=== PATIENT | male | born 2000 | race African-American/Black ===

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

== ENCOUNTER 2020-01-15 22:23 | Emergency (ER) | payer MEDICAID ==
[~2020-01-15] VITALS: Ht 180.3 cm; Wt 68.2 kg
[~2020-01-15 22:23] MED LIST: ALBUTEROL SULF8.5 GM INH; ZITHROMAX TRI-500 MG PO
[2020-01-15 22:31] VITALS: Ht 180.3 cm; Wt 68.2 kg
[2020-01-15 22:53] LABS: BASOPHILS 1.3 % (0-2); EOSINOPHILS 6.3 % (0-7); HEMATOCRIT 41.3 % (42.0-54.0); IMMATURE GRANULOCYTES 0.3 % (0-5); LYMPHOCYTES 32.5 % (15-50); MCHC 33.9 g/dL (31.0-37.0); MCV 94.5 fL (80.0-100.0); MEAN PLATELET VOLUME 9.8 fL (7.4-10.4); MONOCYTES 10.5 % (2-11); NEUTROPHILS 49.1 % (40-80); RBC 4.37 10x6/uL (4.20-6.10); RDW 12.6 % (11.5-14.5); WBC 7.9 10x3/uL (4.8-10.8)
[2020-01-15 22:56] LABS: PLATELET COUNT 259 10x3/uL (130-400)
[2020-01-15 23:08] LABS: CALC OSMOLALITY 276 mosm/kg (275-300); CALCIUM 9.1 mg/dL (8.5-10.1); CARBON DIOXIDE 28.2 mmol/L (21.0-32.0); CHLORIDE - SERUM 104 mmol/L (98-107); CREATININE - SERUM 0.9 mg/dL (0.6-1.3); GLUCOSE 76 mg/dL (74-106); POTASSIUM - SERUM 4.4 mmol/L (3.5-5.1); SODIUM 139 mmol/L (136-145); UREA NITROGEN 13 mg/dL (7-18); eGFR NON AFRICAN AMERICAN > 90 mL/min (90-120)
[2020-01-15 23:13] LABS: ALBUMIN 3.6 g/dL (3.4-5.0); ALKALINE PHOSPHATASE 54 U/L (30-120); ALT (SGPT) 23 U/L (10-68); BILIRUBIN - TOTAL 0.28 mg/dL (0.2-1.3); PROTEIN - SERUM 7.6 g/dL (6.4-8.2)
[2020-01-15 23:35] LABS: BILIRUBIN NEGATIVE (NEGATIVE); GLUCOSE NEGATIVE (NEGATIVE); KETONE NEGATIVE (NEGATIVE); NITRITE NEGATIVE (NEGATIVE); UROBILINOGEN NORMAL (NORMAL)
[2020-01-15 23:36] LABS: BACTERIA NONE SEEN /hpf (NEGATIVE); EPITHELIAL CELLS 0-5 /hpf (0-5); RED CELLS - URINE 0-5 /hpf (0-5); WHITE CELLS - URINE 0-5 /hpf (NEGATIVE)
[2020-01-16 00:28] VITALS: BP 132/89
== END 2020-01-16 00:27 | disposition home or self-care (01) ==
LOC: D.ER 22:23
PROVIDERS: Emergency Medicine
DX: N45.1 Epididymitis (principal); N43.3 Hydrocele, unspecified; N50.811 Right testicular pain